=== PATIENT | female | born 1980 ===

== ENCOUNTER 2018-02-12 16:35 | Outpatient (CLI) | payer OTHER | END 2018-02-12 17:00 | disposition home or self-care (01) | LOC: LAB 16:35 | DX: E11.9 Type 2 diabetes mellitus without complications (principal); I10 Essential (primary) hypertension; D63.8 Anemia in other chronic diseases classified elsewhere; D64.89 Other specified anemias; E78.2 Mixed hyperlipidemia; E03.8 Other specified hypothyroidism; K76.89 Other specified diseases of liver; E55.9 Vitamin D deficiency, unspecified; C56.9 Malignant neoplasm of unspecified ovary; D01.0 Carcinoma in situ of colon; N39.0 Urinary tract infection, site not specified; K92.1 Melena; K73.9 Chronic hepatitis, unspecified; B18.8 Other chronic viral hepatitis; Z12.12 Encounter for screening for malignant neoplasm of rectum; K76.1 Chronic passive congestion of liver; K76.9 Liver disease, unspecified; R80.8 Other proteinuria; R30.0 Dysuria ==

== ENCOUNTER 2018-11-21 16:20 | Outpatient (CLI) | payer OTHER | END 2018-11-21 16:33 | disposition home or self-care (01) | LOC: LAB 16:20 | DX: E11.9 Type 2 diabetes mellitus without complications (principal); I10 Essential (primary) hypertension; D63.8 Anemia in other chronic diseases classified elsewhere; D64.89 Other specified anemias; E78.00 Pure hypercholesterolemia, unspecified; E55.9 Vitamin D deficiency, unspecified; N39.0 Urinary tract infection, site not specified; K12.1 Other forms of stomatitis; K73.8 Other chronic hepatitis, not elsewhere classified; K76.1 Chronic passive congestion of liver; K76.9 Liver disease, unspecified; R30.0 Dysuria; R80.8 Other proteinuria ==

== ENCOUNTER 2022-01-24 14:42 | Outpatient (CLI) | payer OTHER | END 2022-01-24 14:55 | disposition home or self-care (01) | LOC: TOM 14:42 | PROVIDERS: ATTEND Specialist | DX: J01.00 Acute maxillary sinusitis, unspecified (principal) ==

== ENCOUNTER 2022-09-07 14:46 | Outpatient (CLI) | payer OTHER | END 2022-09-07 14:59 | disposition home or self-care (01) | LOC: MAMO-SONO 14:46 | DX: N60.01 Solitary cyst of right breast (principal); N60.02 Solitary cyst of left breast ==

== ENCOUNTER → 2023-04-12 16:02 | Outpatient (CLI) | payer OTHER | END | disposition home or self-care (01) | LOC: LAB 16:02 | PROVIDERS: ATTEND Obstetrics & Gynecology | DX: O02.1 Missed abortion (principal) ==

== ENCOUNTER 2024-04-01 15:07 | Outpatient (CLI) | payer OTHER | END 2024-04-01 15:20 | disposition home or self-care (01) | LOC: SONOGRAMA 15:07 | PROVIDERS: ATTEND Specialist | DX: N20.0 Calculus of kidney (principal) ==

== ENCOUNTER 2024-04-01 17:05 | Outpatient (CLI) | payer OTHER | END 2024-04-01 17:12 | disposition home or self-care (01) | LOC: LAB 17:05 | PROVIDERS: ATTEND Specialist | DX: C54.1 Malignant neoplasm of endometrium (principal) ==

== ENCOUNTER 2024-04-05 14:58 | Outpatient (CLI) | payer OTHER | END 2024-04-05 15:18 | disposition home or self-care (01) | LOC: SONOGRAMA 14:58 | PROVIDERS: ATTEND Specialist | DX: N83.209 Unspecified ovarian cyst, unspecified side (principal) ==

== ENCOUNTER 2024-06-28 15:18 | Outpatient (CLI) | payer OTHER ==
[2024-06-28 16:08] LABS: HEMATOCRIT 44.4 % (36.0-45.00); HEMOGLOBIN 15.4 g/dL (12.0-15.00); MEAN CELL VOLUME 83.3 fL (80.00-100.00); MEAN CORPUSCULAR HEMOGLOBIN 28.8 pg (27.00-32.0); MEAN CORPUSCULAR HGB CONC 34.6 g/dl (32.0-36.0); PLATELET COUNT 223 K/uL (150-450); RED BLOOD COUNT 5.33 M/uL (4.00-6.00); RED CELL DISTRIBUTION WIDTH 13.1 % (11.5-14.5)
[2024-06-28 16:39] LABS: BILIRUBIN TOTAL 0.47 mg/dL (0.3-1.2); BILIRUBIN,CONJUGATED 0.12 mg/dL (0.0-0.2); BILIRUBIN,UNCONJUGATED 0.35 mg/dL (0.0-0.6); CALCIUM 8.9 mg/dL (8.5-10.1); CHOL HDL RATIO 4.5 (0-5.0); CREATININE SERUM 0.84 mg/dL (0.55-1.02); GFR 74.35; PHOSPHOROUS 3.2 mg/dL (2.5-4.9); POTASSIUM 3.88 mEq/L (3.5-5.1); TOTAL PROTEIN 7.4 gm/dL (6.4-8.2); TSH 2.08 uIU/mL (0.358-3.74)
[2024-06-28 16:56] LABS: FOLIC ACID > 20.00 ng/ml (4.78-20); VITAMIN D3 25 HYDROXY 46.58 ng/ml (30-120)
== END 2024-06-28 15:34 | disposition home or self-care (01) ==
LOC: LAB 15:18
PROVIDERS: ATTEND Internal Medicine
DX: N95.1 Menopausal and female climacteric states (principal); K92.1 Melena; K76.9 Liver disease, unspecified; E11.69 Type 2 diabetes mellitus with other specified complication; N95.9 Unspecified menopausal and perimenopausal disorder; E55.9 Vitamin D deficiency, unspecified; E03.9 Hypothyroidism, unspecified; I11.9 Hypertensive heart disease without heart failure; N41.0 Acute prostatitis; N63.0 Unspecified lump in unspecified breast; N41.1 Chronic prostatitis; E29.1 Testicular hypofunction

== ENCOUNTER 2024-10-15 14:19 | Outpatient (CLI) | payer OTHER | END 2024-10-15 14:21 | disposition home or self-care (01) | LOC: TOM 14:19 | PROVIDERS: ATTEND Specialist | DX: J01.91 Acute recurrent sinusitis, unspecified (principal) ==

== ENCOUNTER → 2025-06-13 | Outpatient (CLI) | payer OTHER | END | disposition home or self-care (01) | LOC: TOM 10:07 | PROVIDERS: ATTEND Obstetrics & Gynecology Reproductive Endocrinology | DX: N70.11 Chronic salpingitis (principal) ==